=== PATIENT | male | born 1935 | race Caucasian/White ===

== ENCOUNTER 2017-03-28 13:30 | Inpatient (IN) | payer MEDICARE ==
[~2017-03-28] VITALS: Ht 165.1 cm; Wt 64.0 kg
[2017-03-28] MEDS ORDERED: SODIUM CHLORIDE 0.9% 1,000 ML IV ONE ×3 (13:45→14:45)
[2017-03-28] MEDS ORDERED: 0.9% SODIUM CHLORIDE 10 ML SYRINGE IVP PRN (13:45)
[2017-03-28] MEDS ORDERED: CARV3 PO (13:59)
[2017-03-28] MEDS ORDERED: ATOR20TA86 PO (13:59)
[2017-03-28] MEDS ORDERED: ESCI10TA PO (13:59)
[2017-03-28] MEDS ORDERED: CARB1TAB18 PEG (13:59)
[2017-03-28] MEDS ORDERED: BISA10S PR (13:59)
[2017-03-28] MEDS ORDERED: DSS100 PO ×2 (13:59→14:49)
[2017-03-28] MEDS ORDERED: FAMO20 PO (14:00)
[2017-03-28] MEDS ORDERED: FINA5TAB41 PO (14:01)
[2017-03-28] MEDS ORDERED: NOREPINEPHRINE 4 MG/D5%-WATER 250 ML IV ONE (14:17)
[2017-03-28] MEDS ORDERED: THIA100 PO (14:49)
[2017-03-28] MEDS ORDERED: HYDR473S51 PO (14:49)
[2017-03-28] MEDS ORDERED: BISA5TAB12 PO (14:49)
[2017-03-28] MEDS ORDERED: ONDA4 PO (14:49)
[2017-03-28] MEDS ORDERED: IPRA3AMP4 IH (14:49)
[2017-03-28] MEDS ORDERED: PRAM0.258 PO (14:49)
[2017-03-28 14:52] LABS: EOSINOPHILS % (AUTO) 0 % (1.0-6.0); HEMATOCRIT 34.5 % (41-53); HEMOGLOBIN 11.4 g/dL (13.5-17.5); LYMPHOCYTES # (AUTO) 1.3 K/uL (1.0-4.8); LYMPHOCYTES % (AUTO) 9.4 % (22.0-44.0); MEAN CORPUSCULAR HEMOGLOBIN 30.1 pg (26.0-34.0); MEAN CORPUSCULAR VOLUME 91 fL (80-100); MONOCYTES # (AUTO) 0.3 K/uL (0.1-1.0); MONOCYTES % (AUTO) 1.8 % (2.0-9.0); NEUTROPHILS # (AUTO) 12.2 K/uL (1.8-7.7); NEUTROPHILS % (AUTO) 88.8 % (40.0-70.0); PLATELET COUNT (AUTO) 219 K/uL (150-450); RED BLOOD CELL COUNT(AUTO) 3.78 MIL/uL (4.50-5.90); RED CELL DISTRIBUTION WIDTH 15.1 % (11.5-14.5); WHITE BLOOD COUNT (AUTO) 13.7 K/uL (4.5-11.0)
[2017-03-28 14:59] LABS: INR 2.4 (0.9-1.1); PROTHROMBIN TIME 25.9 SEC (9.4-11.6)
[2017-03-28] MEDS ORDERED: PIPERACILLIN/TAZO 3.375 GM/D5W 50 ML IV ONE ×2 (15:12→15:15)
[2017-03-28 15:21] LABS: B-TYPE NATRIURETIC PEPTIDE 1790 pg/mL (0-100)
[2017-03-28] MEDS ORDERED: DOPamine HCL 400 MG/D5%-WATER 250 ML IV PRN (15:22)
[2017-03-28 15:23] LABS: ALBUMIN 1.8 g/dL (3.4-5.0); ANION GAP 16 mmol/L (8-16); ASPARTATE AMINOTRANSFERASE 45 U/L (15-37); BILIRUBIN,TOTAL 2.2 mg/dL (0.1-1.0); CALCIUM, TOTAL 8.3 mg/dL (8.8-10.5); CARBON DIOXIDE 15 mmol/L (22-29); CHLORIDE 97 mmol/L (98-107); CREATINE KINASE MB 6.3 ng/mL (0-5); CREATINE KINASE, TOTAL 233 U/L (39-308); CREATININE 4.09 mg/dL (0.60-1.30); GLOMERULAR FILTR. RATE CALC 14 mL/min (>60); SODIUM SERUM 128 mmol/L (136-145); TOTAL PROTEIN, SERUM 5.8 g/dL (6.4-8.2); UREA NITROGEN, BLOOD 61 mg/dL (7-18)
[2017-03-28] MEDS ORDERED: INSULIN REGULAR, HUMAN 100 UNITS/ML IVP ONE (15:30)
[2017-03-28] MEDS ORDERED: SUCCINYLCHOLINE CHLORIDE 20 MG/ML 10 ML VIAL IVP ONE (15:30)
[2017-03-28] MEDS ORDERED: SODIUM POLYSTYRENE SULFONATE 15 GM/60 ML SUSPENSION BOTTLE PO ONE (15:30)
[2017-03-28] MEDS ORDERED: DEXTROSE 50%-WATER 25 GM/50 ML SYRINGE IVP ONE ×2 (15:30→21:53)
[2017-03-28] MEDS ORDERED: SODIUM BICARBONATE [ADULT] 8.4% 50 MEQ/50 ML SYRINGE IVP ONE (15:30)
[2017-03-28] MEDS ORDERED: ETOMIDATE 2 MG/ML 10 ML VIAL IVP ONE (15:30)
[2017-03-28] MEDS ORDERED: VANCOMYCIN HCL 1 GM/D5% WATER 200 ML IV ONE (15:30)
[2017-03-28] MEDS ORDERED: CALCIUM GLUCONATE 100 MG/ML 10 ML IVP ONE (15:30)
[2017-03-28] MEDS ORDERED: ALBUTEROL SULFATE 2.5 MG/0.5 ML NEB SOLUTION NEB ONE (15:30)
[2017-03-28 15:31] LABS: POTASSIUM 7.2 mmol/L (3.5-5.1)
[2017-03-28 15:37] LABS: LACTIC ACID 7.8 mmol/L (0.4-2.0)
[2017-03-28 15:44] LABS: PROCALCITONIN (PCT) 124.47 ng/mL (<0.50)
[2017-03-28 15:50] LABS: ALANINE AMINOTRANSFERASE 9 U/L (12-78)
[2017-03-28 16:02] LABS: RBC MORPHOLOGY COMMENT NORMAL RBC MORPH
[2017-03-28] MEDS: NOREPINEPHRINE 4 MG/D5%-WATER 250 ML IV PRN ×2 (16:25→20:44)
[2017-03-28 16:39] LABS: REFLEX LACTIC ACID? YES YES
[2017-03-28 16:39] LABS: ABG PH 7.226 (7.35-7.450); ALLEN TEST, BLOOD GAS Positive; TEMPERATURE, FAHRENHEIT, BG 98.6 FAHREN (96.0-98.6)
[2017-03-28 16:40] LABS: ABG BASE EXCESS -15.8 mmol/L (-2.0-3.0); ABG HCO3 13.3 mmol/L (22.0-26.0); ABG PCO2 29 mmHg (35-45)
[2017-03-28 16:41] LABS: ABG OXYHEMOGLOBIN 97.4 % (94.0-100.0)
[2017-03-28 16:42] LABS: ABG A-A DIFF O2 524.5 mmHg (10-20.0)
[2017-03-28] MEDS ORDERED: PHENYLEPHRINE 200 MG/D5%-WATER 250 ML IV ONE (17:26)
[2017-03-28] MEDS ORDERED: 0.9% SODIUM CHLORIDE 5 ML NEB SOLUTION NEB ONE (18:25)
[2017-03-28 20:18] LABS: CALCIUM, TOTAL 8.7 mg/dL (8.8-10.5); CREATININE 3.84 mg/dL (0.60-1.30); POTASSIUM 5.9 mmol/L (3.5-5.1)
[2017-03-28] MEDS ORDERED: SODIUM CHLORIDE 0.9% 500 ML IV ONE (21:06)
[2017-03-28] MEDS ORDERED: SODIUM CHLORIDE 0.9% 2,000 ML IV ONE (21:06)
[2017-03-28] MEDS ORDERED: RINGERS SOLUTION,LACTATED 0 ML IV ONE (21:06)
[2017-03-28] MEDS ORDERED: SODIUM CHLORIDE 0.9% 250 ML IV ONE (21:13)
[2017-03-28] MEDS: PIPERACILLIN SODIUM/TAZOBACTAM 2.25 GM in DEXTROSE 5%-WATER 50 ML IV SCH (21:19)
[2017-03-28 21:22] VITALS: BP 105/72
[2017-03-28] MEDS ORDERED: LEVOFLOXACIN 750 MG/D5% WATER 150 ML IV ONE (21:30)
[2017-03-28] MEDS ORDERED: INSULIN REGULAR, HUMAN 100 UNITS/ML ONE (21:55)
[2017-03-28] MEDS ORDERED: MAGNESIUM HYDROXIDE SUSPENSION 30 ML UDCUP PO PRN (22:00)
[2017-03-28] MEDS ORDERED: HEPARIN SODIUM,PORCINE 5,000 UNITS/ML VIAL SQ SCH (22:00)
[2017-03-28] MEDS ORDERED: BISACODYL 10 MG RECTAL RECTAL SUPPOSITORY PR PRN (22:00)
[2017-03-28] MEDS ORDERED: ONDANSETRON HCL 4 MG/2 ML VIAL IVP PRN (22:00)
[2017-03-28] MEDS ORDERED: BACITRACIN 50,000 UNITS/VIAL ONE (22:36)
[2017-03-28] MEDS ORDERED: SODIUM CHLORIDE 0.9% 0 ML ONE (22:36)
[2017-03-28] MEDS ORDERED: RINGERS SOLUTION,LACTATED 1,000 ML IV ONE (22:44)
[2017-03-28] MEDS ORDERED: SODIUM CHLORIDE 0.9% 10 ML ONE (23:38)
[2017-03-28] MEDS ORDERED: HEPARIN SODIUM,PORCINE 1,000 UNITS/ML VIAL ONE (23:38)
[2017-03-28] MEDS ORDERED: HEPARIN SODIUM 1000 UNITS/NS 500 ML ONE (23:40)
[2017-03-29 00:15] VITALS: BP 64/31
[2017-03-29] MEDS ORDERED: HEPARIN SODIUM,PORCINE 1,000 UNITS/ML VIAL ONE (00:29)
[2017-03-29] MEDS ORDERED: VASOPRESSIN 100 UNITS in DEXTROSE 5%-WATER 245 ML IV PRN (00:43)
[2017-03-29] MEDS: NOREPINEPHRINE 4 MG/D5%-WATER 250 ML IV PRN ×4 (00:46→14:16)
[2017-03-29] MEDS: PHENYLEPHRINE 200 MG/D5%-WATER 250 ML IV PRN ×2 (00:49→14:20)
[2017-03-29] MEDS ORDERED: SODIUM CHLORIDE 0.9% 250 ML IV ONE (01:10)
[2017-03-29 01:17] LABS: HEMATOCRIT 30.6 % (41-53); MEAN CORPUSCULAR HGB CONC 32.7 G/dL (31.0-37.0); MEAN CORPUSCULAR VOLUME 92 fL (80-100); RED BLOOD CELL COUNT(AUTO) 3.33 MIL/uL (4.50-5.90); RED CELL DISTRIBUTION WIDTH 14.8 % (11.5-14.5)
[2017-03-29 01:21] LABS: CALCIUM, TOTAL 7.6 mg/dL (8.8-10.5); CREATININE 3.38 mg/dL (0.60-1.30)
[2017-03-29 01:22] LABS: WHITE BLOOD COUNT (AUTO) 7.2 K/uL (4.5-11.0)
[2017-03-29 01:26] LABS: ALBUMIN 1.6 g/dL (3.4-5.0); BILIRUBIN,TOTAL 2.3 mg/dL (0.1-1.0); MAGNESIUM 2.8 mg/dL (1.80-2.40); PHOSPHORUS 4.2 mg/dL (2.5-4.9); TOTAL PROTEIN, SERUM 4.6 g/dL (6.4-8.2)
[2017-03-29 01:30] LABS: PROTHROMBIN TIME 21.4 SEC (9.4-11.6)
[2017-03-29 01:38] LABS: PLATELET COUNT (AUTO) 136 K/uL (150-450)
[2017-03-29] MEDS: PIPERACILLIN SODIUM/TAZOBACTAM 2.25 GM in DEXTROSE 5%-WATER 50 ML IV SCH (02:26)
[2017-03-29 02:45] LABS: LYMPHOCYTES % (MANUAL) 32 % (22-44); TOTAL CELLS COUNTED 100
[2017-03-29 02:49] LABS: BAND NEUTROPHILS % (MANUAL) 7 % (1-5); METAMYELOCYTES % 1 % (0-0)
[2017-03-29 04:00] VITALS: BP 101/46
[2017-03-29 05:45] LABS: ANION GAP 13 mmol/L (8-16); CALCIUM, TOTAL 7.8 mg/dL (8.8-10.5); CARBON DIOXIDE 16 mmol/L (22-29); CHLORIDE 98 mmol/L (98-107); CREATINE KINASE MB 62.9 ng/mL (0-5); GLOMERULAR FILTR. RATE CALC 17 mL/min (>60); POTASSIUM 5.6 mmol/L (3.5-5.1); SODIUM SERUM 127 mmol/L (136-145); UREA NITROGEN, BLOOD 57 mg/dL (7-18)
[2017-03-29 05:59] LABS: CREATINE KINASE, TOTAL 1065 U/L (39-308)
[2017-03-29 06:07] LABS: HEMATOCRIT 34.8 % (41-53); HEMOGLOBIN 11.4 g/dL (13.5-17.5); MEAN CORPUSCULAR HEMOGLOBIN 30.4 pg (26.0-34.0); MEAN CORPUSCULAR HGB CONC 32.8 G/dL (31.0-37.0); MEAN CORPUSCULAR VOLUME 93 fL (80-100); PLATELET COUNT (AUTO) 139 K/uL (150-450); RED BLOOD CELL COUNT(AUTO) 3.75 MIL/uL (4.50-5.90); WHITE BLOOD COUNT (AUTO) 10.1 K/uL (4.5-11.0)
[2017-03-29 06:29] LABS: HEMOGLOBIN A1C 9.3 % (4.5-6.2)
[2017-03-29 06:57] LABS: CHOL/HDL RATIO 2.9 (4.2-7.3)
[2017-03-29 08:00] VITALS: BP 111/51
[2017-03-29] MEDS ORDERED: SODIUM CHLORIDE 0.9% 2,000 ML IV ONE (08:07)
[2017-03-29] MEDS ORDERED: PANTOPRAZOLE SODIUM 40 MG/VIAL IVP SCH (09:00)
[2017-03-29] MEDS ORDERED: HEPARIN SODIUM,PORCINE 5,000 UNITS/ML VIAL SQ SCH (09:00)
[2017-03-29 10:14] LABS: BAND NEUTROPHILS % (MANUAL) 28 % (1-5); LYMPHOCYTES % (MANUAL) 12 % (22-44); TOTAL CELLS COUNTED 100
[2017-03-29 10:15] LABS: RBC MORPHOLOGY COMMENT ABNORMAL R
[2017-03-29 12:00] VITALS: BP 70/41
[2017-03-29] MEDS ORDERED: PIPERACILLIN SODIUM/TAZOBACTAM 2.25 GM in DEXTROSE 5%-WATER 50 ML IV SCH (12:00)
[2017-03-29] MEDS ORDERED: ETOMIDATE 2 MG/ML 10 ML VIAL ONE (15:00)
[2017-03-29] MEDS ORDERED: MORPHINE SULFATE 100 MG/NS/PF 100 ML IV PRN (15:29)
[2017-03-29] MEDS ORDERED: DiphenhydrAMINE HCL 50 MG/ML VIAL IVP PRN (15:30)
[2017-03-29] MEDS ORDERED: ONDANSETRON HCL 4 MG/2 ML VIAL IVP PRN (15:30)
[2017-03-29] MEDS ORDERED: FentaNYL CITRATE-PF 100 MCG/2 ML VIAL IVP ONE (15:59)
[2017-03-29] MEDS ORDERED: NEOSTIGMINE METHYLSULFATE 1 MG/ML 10 ML VIAL IVP ONE (15:59)
[2017-03-29] MEDS ORDERED: VECURONIUM BROMIDE 10 MG/VIAL IVP ONE (15:59)
[2017-03-29] MEDS ORDERED: PHENYLEPHRINE HCL 10 MG/ML VIAL IVP ONE (15:59)
[2017-03-30] MEDS ORDERED: LEVOFLOXACIN 500 MG/D5% WATER 100 ML IV SCH (21:30)
== END 2017-03-29 16:00 | disposition expired | DRG 853 ==
LOC: EMS 13:33 → ICU 21:15
PROVIDERS: ADMIT Internal Medicine Geriatric Medicine; ATTEND Internal Medicine Geriatric Medicine
PROC: 0DB60ZZ Excision of Stomach, Open Approach (ICD-10-PCS; 2017-03-28)
PROC: 0BH17EZ Insertion of Endotracheal Airway into Trachea, Via Natural or Artificial Opening (ICD-10-PCS; 2017-03-28)
PROC: 0DHA3UZ Insertion of Feeding Device into Jejunum, Percutaneous Approach (ICD-10-PCS; 2017-03-28)
PROC: 30233L1 Transfusion of Nonautologous Fresh Plasma into Peripheral Vein, Percutaneous Approach (ICD-10-PCS; 2017-03-28)
PROC: 30233K1 Transfusion of Nonautologous Frozen Plasma into Peripheral Vein, Percutaneous Approach (ICD-10-PCS; 2017-03-28)
PROC: 02HV33Z Insertion of Infusion Device into Superior Vena Cava, Percutaneous Approach (ICD-10-PCS; 2017-03-28)
PROC: B548ZZA Ultrasonography of Superior Vena Cava, Guidance (ICD-10-PCS; 2017-03-28)
PROC: 3E1M38Z Irrigation of Peritoneal Cavity using Irrigating Substance, Percutaneous Approach (ICD-10-PCS; 2017-03-28)
PROC: 5A1935Z Respiratory Ventilation, Less than 24 Consecutive Hours (ICD-10-PCS; principal; 2017-03-28 21:17)
PROC: 5A1D70Z Performance of Urinary Filtration, Intermittent, Less than 6 Hours Per Day (ICD-10-PCS; 2017-03-29)
DX: A41.9 Sepsis, unspecified organism (principal); J69.0 Pneumonitis due to inhalation of food and vomit; J96.00 Acute respiratory failure, unspecified whether with hypoxia or hypercapnia; R65.21 Severe sepsis with septic shock; K65.1 Peritoneal abscess; E87.2 Acidosis; R34 Anuria and oliguria; R18.8 Other ascites; K66.8 Other specified disorders of peritoneum; I13.0 Hypertensive heart and chronic kidney disease with heart failure and stage 1 through stage 4 chronic kidney disease, or unspecified chronic kidney disease; N17.9 Acute kidney failure, unspecified; I31.3 Pericardial effusion (noninflammatory); I50.9 Heart failure, unspecified; E87.5 Hyperkalemia; N18.9 Chronic kidney disease, unspecified; G20 Parkinson's disease; E78.5 Hyperlipidemia, unspecified; N40.0 Benign prostatic hyperplasia without lower urinary tract symptoms; F03.90 Unspecified dementia, unspecified severity, without behavioral disturbance, psychotic disturbance, mood disturbance, and anxiety; H91.90 Unspecified hearing loss, unspecified ear; I25.10 Atherosclerotic heart disease of native coronary artery without angina pectoris; I48.91 Unspecified atrial fibrillation; K21.9 Gastro-esophageal reflux disease without esophagitis; M10.9 Gout, unspecified; R13.10 Dysphagia, unspecified; Y83.3 Surgical operation with formation of external stoma as the cause of abnormal reaction of the patient, or of later complication, without mention of misadventure at the time of the procedure; Z51.5 Encounter for palliative care; Z66 Do not resuscitate; Z90.5 Acquired absence of kidney; K94.29 Other complications of gastrostomy
CPT/HCPCS: 31500; 36430; 51702; 70450; 71250; 74000; 74176; 82306; 82607; 82746; 82805; 83036; 83605; 83735; 84100; 84145; 84439; 85007; 86900; 86901; 86927; 87040; 87081; 87340; 88307; 90947; 93005; 93306; 94002; 94003; 94640; 96361; 96365; 96366; 96367; 96368; 96375; 99291; C9113; J0610; J1644; J1815; J1956; J2270; J2370; J2543; J3010; J3370; J3490; J7030; J7040; J7050; J7060; J7120; P9017